=== PATIENT | female | born 2000 | race African-American/Black ===

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

== ENCOUNTER 2022-10-05 18:46 | Emergency (ER) | payer OTHER ==
[2022-10-05 19:02] VITALS: BP 108/65; PULSE 98; RESP 20; TEMP 99.1; BMI 19.5
[2022-10-05] MEDS ORDERED: ACETAMINOPHEN 325 MG TABLET (FP) PO ONE (20:02)
[2022-10-05] MEDS ORDERED: KETOROLAC TROMETHAMINE 30 MG/1 ML VIAL IM ONE (20:02)
[2022-10-05] MEDS ORDERED: LIDOCAINE 5% TOPICAL PATCH TP ONE (20:03)
[2022-10-05] MEDS ORDERED: LIDOCAINE 5% TOPICAL PATCH ONE (20:16)
[2022-10-05] MEDS ORDERED: ACETAMINOPHEN 325 MG TABLET (FP) ONE (20:16)
[2022-10-05] MEDS ORDERED: KETOROLAC TROMETHAMINE 30 MG/1 ML VIAL ONE (20:16)
[2022-10-05 20:38] LABS: BASO % 0.4 % (0-2.0); EOS % 1.6 % (0-4.5); HEMATOCRIT 35.6 % (32.4-45.2); HEMOGLOBIN 11.9 GM/dL (10.7-15.3); LYMPH % 19.8 % (8-40); MCH 27.5 pg (25.7-33.7); MCHC 33.5 g/dl (32.0-36.0); MEAN CELL VOLUME 82.3 fl (80-96); MEAN PLT VOLUME 7.7 fl (7.5-11.1); MONO % 6.4 % (3.8-10.2); NEUT % 71.8 % (42.8-82.8); PLATELET COUNT 321 10^3/uL (134-434); RBC 4.33 M/mm3 (3.60-5.2); RDW 14.4 % (11.6-15.6); WHITE BLOOD COUNT 5.6 K/mm3 (4.0-10.0)
[2022-10-05 20:49] LABS: URINE APPEARANCE CLEAR; URINE BILIRUBIN NEGATIVE (NEGATIVE); URINE COLOR YELLOW; URINE GLUCOSE (UA) NEGATIVE (NEGATIVE); URINE KETONE TRACE (NEGATIVE); URINE LEUK ESTERASE NEGATIVE (NEGATIVE); URINE NITRITE NEGATIVE (NEGATIVE); URINE PROTEIN TRACE (NEGATIVE)
[2022-10-05 20:52] LABS: HCG,QUALITATIVE URINE Negative
[2022-10-05 21:34] LABS: POTASSIUM 3.8 mmol/L (3.5-5.1)
[2022-10-05 21:36] LABS: BLOOD UREA NITROGEN 9.9 mg/dL (7-18); CALCIUM 9.2 mg/dL (8.5-10.1)
[2022-10-05 21:37] LABS: ALBUMIN 3.9 g/dl (3.4-5.0)
[2022-10-05 21:39] LABS: CREATININE 0.6 mg/dL (0.55-1.3)
[2022-10-05 21:41] LABS: BILIRUBIN,TOTAL 0.3 mg/dL (0.2-1); TOT PROT 9.2 g/dl (6.4-8.2)
[2022-10-05] MEDS ORDERED: LIDOCAINE PATCH REMOVAL MC SCH (22:00)
[2022-10-05] MEDS ORDERED: METHOCARBAMOL 500 MG TABLET PO ONE (22:52)
[2022-10-05] MEDS ORDERED: METHOCARBAMOL 500 MG TABLET ONE (22:54)
== END 2022-10-05 23:56 | disposition home or self-care (01) ==
LOC: JERFT 18:46 → JER 18:46
PROC: 3E023NZ Introduction of Analgesics, Hypnotics, Sedatives into Muscle, Percutaneous Approach (ICD-10-PCS; principal; 2022-10-05)
DX: R10.11 Right upper quadrant pain (principal); M79.10 Myalgia, unspecified site; Z20.822 Contact with and (suspected) exposure to COVID-19
CPT/HCPCS: 0241U-QW; 36415; 71046-TC-FY; 76705-TC; 80053; 81003; 84703; 85025; 93005; 93010; 99285-25

== ENCOUNTER 2024-08-16 15:22 | Emergency (ER) | payer OTHER ==
[2024-08-16 15:35] VITALS: BP 110/59; PULSE 78; RESP 16; TEMP 97.9; BMI 19.2
[2024-08-16] MEDS ORDERED: IBUPROFEN 600 MG TABLET (FP) PO ONE (17:13)
[2024-08-16] MEDS: IBUPROFEN 600 MG TABLET (FP) PO ONE (17:18)
== END 2024-08-16 17:23 | disposition home or self-care (01) ==
LOC: JERFT 15:22
DX: S63.501A Unspecified sprain of right wrist, initial encounter (principal); S60.412A Abrasion of right middle finger, initial encounter; S60.414A Abrasion of right ring finger, initial encounter; W22.8XXA Striking against or struck by other objects, initial encounter
CPT/HCPCS: 73130-TC-RT-FY; 99283-25